=== PATIENT | female | born 1965 | race American Indian/Alaskan Native ===

== ENCOUNTER 2020-10-11 12:56 | Emergency (ER) | payer OTHER ==
[2020-10-11 13:56] LABS: BUN/Creatinine Ratio 27; Blood Urea Nitrogen 16 mg/dL (7-17); Calcium 9.4 mg/dL (8.4-10.2); Hemolysis Index 14
[2020-10-11 14:10] LABS: Basophils % (Auto) 0.6 % (0.0-1.8); Eosinophils # (Auto) 0.2 K/mm3 (0.0-0.4); Eosinophils % (Auto) 2.5 % (0.0-4.3); Hematocrit 41.1 % (30.3-42.9); Hemoglobin 13.5 gm/dl (10.1-14.3); Lymphocytes # (Auto) 2.6 K/mm3 (1.2-5.4); Lymphocytes % (Auto) 39.5 % (13.4-35.0); Mean Corpuscular HGB Conc 33 % (30-34); Mean Corpuscular Volume 95 fl (79-97); Monocytes # (Auto) 0.5 K/mm3 (0.0-0.8); Platelet Count 313 K/mm3 (140-440); Red Blood Count 4.33 M/mm3 (3.65-5.03); Red Cell Distribution Width 13.7 % (13.2-15.2)
[2020-10-11 14:15] VITALS: BP 144/70
--- NOTE | 2020-10-11 14:15 | Emergency Department Report ---
<ANTIONEMARLY C - Last Filed: 10/11/20 15:50> History of Present Illness - General Chief Complaint: Medical Clearance Stated Complaint: OVERDOSE Time Seen by Provider: 10/11/20 13:13 Source: patient Mode of arrival: Stretcher Limitations: No Limitations - History of Present Illness Initial Comments: 55-year-old female with a past medical history of diabetes (on insulin and pills), ADHD, CAD with stent placed in 2006 and hypertension currently on amlodipine 10 mg daily presents to the hospital with complaints of accidental o verdose of amlodipine. Patient took amlodipine 10 mg at approximately 9 or 10 PM last night. This morning she mistakenly took 2 more tablets i.e. 20 mg amlodipine at approximately 9:30 AM. Patient received her new amlodipine prescription from a different pharmacy and therefore the appearance of the pills was different. She thought she was taking 2 glipizide tablets and then afterwards realized that she indeed had taken additional Norvasc. Patient states she then took her glipizide, Metformin, and insulin as prescribed. Patient called the [place] advice hotline and then subsequently went to urgent care. Patient states she had a unremarkable EKG and was advised to go to the ER for evaluation. Patient states she did have several hours of right-sided chest tightness without aggravating or alleviating factors. She also denies associated symptoms including shortness breath, nausea, vomiting, lightheadedness, syncope, or diaphoresis. Patient is pain-free at this time and states it feels different than her previous heart attack. Patient last had a unremarkable exercise stress test 5 years ago and a negative cardiac cath in 2009. She states she walks at least 10,000 steps a day with last exercise day yesterday. Patient also takes a baby aspirin daily with last dose yesterday. She does not currently take Plavix. - Related Data Allergies Allergy/AdvReac Type Severity Reaction Status Date / Time doxycycline AdvReac Vomiting Verified 10/11/20 14:17 tetracycline AdvReac Vomiting Verified 10/11/20 14:17 ED Review of Systems Comment: All other systems reviewed and negative ED Past Medical Hx - Past Medical History Previous Medical History?: Yes Hx Hypertension: Yes Hx Heart Attack/AMI: Yes (2006) Hx Diabetes: Yes - Surgical History Hx Coronary Stent: Yes (2006) - Social History Smoking Status: Unknown if ever smoked ED Physical Exam - General Limitations: No Limitations - Other Other exam information: General: No acute distress Head: Atraumatic Eyes: normal appearance ENT: Moist mucous membranes Neck: Normal appearance, no midline tenderness Chest: Clear to auscultation bilaterally, chest wall nontender CV: Regular rate and rhythm Abdomen: Soft, normal bowel sounds, nontender, nondistended, no rebound or guarding Back: Normal inspection Extremity: Normal inspection, full range of motion, no calf tenderness or leg edema Neuro: Alert O x 3, no facial asymmetry, speech clear, no gross motor sensory deficit Psych: Appropriate behavior Skin: No rash ED Course - Reevaluation(s) Reevaluation #1: 10/11/20 14:[address] patient on telemetry monitor 10/11/20 15:48 BP normal in ed - Consultations Consultation #1: 10/11/20 14:37 Case discussed Deandre with poison control at this time. They had received call previously from [facility]. They recommend supportive care and 18 hours of observation. They state that Norvasc can have a delayed onset and prolonged half-life. Symptoms of toxicity usually become evident 9 hours post ingestion. If patient becomes hypotensive then IV fluids and call back to poison control for further instructions is recommended. Case was then discussed with Dr. Mcmahon hospitalist. History and name provided however, patient is a [place] patient and therefore I was called for [place] clearance prior to admission 10/11/20 15:22 case d/w Brendon MATA, states her notes state it was recommended for pt receive activated charcoal with sorbitol. I will call poison to confirm since I was not informed that was the recommendation and why pt was sent to the ED. Case rediscussed with Deandre with poison control who does not commend charcoal at this time given that ingestion with 6 hours ago. She confirmed this recommendation with her corporate strategy analyst 10/11/20 15:27 Awaiting callback from Brendon MATA to verify acceptance for transfer ED Medical Decision Making - Lab Data Result diagrams: 10/11/20 13:25 10/11/20 13:25 Lab Results 10/11/20 10/11/20 10/11/20 Range/Units 13:25 13:25 13:25 WBC 6.5 (4.5-11.0) K/mm3 RBC 4.33 (3.65-5.03) M/mm3 Hgb 13.5 (10.1-14.3) gm/dl Hct 41.1 (30.3-42.9) % MCV 95 (79-97) fl MCH 31 (28-32) pg MCHC 33 (30-34) % RDW 13.7 (13.2-15.2) % Plt Count 313 (140-440) K/mm3 Lymph % (Auto) 39.5 H (13.4-35.0) % Morton % (Auto) 7.0 (0.0-7.3) % Eos % (Auto) 2.5 (0.0-4.3) % Baso % (Auto) 0.6 (0.0-1.8) % Lymph # (Auto) 2.6 (1.2-5.4) K/mm3 Morton # (Auto) 0.5 (0.0-0.8) K/mm3 Eos # (Auto) 0.2 (0.0-0.4) K/mm3 Baso # (Auto) 0.0 (0.0-0.1) K/mm3 Seg Neutrophils % 50.4 (40.0-70.0) % Seg Neutrophils # 3.3 (1.8-7.7) K/mm3 Sodium 138 (137-145) mmol/L Potassium 4.1 (3.6-5.0) mmol/L Chloride 105.3 (98-107) mmol/L Carbon Dioxide 22 (22-30) mmol/L Anion Gap 15 mmol/L BUN 16 (7-17) mg/dL Creatinine 0.6 (0.6-1.2) mg/dL Estimated GFR > 60 ml/min BUN/Creatinine Ratio 27 % Glucose 223 H (65-100) mg/dL POC Glucose (70-105) mg/dL Calcium 9.4 (8.4-10.2) mg/dL Troponin T (0.00-0.029) ng/mL Salicylates < 0.3 L (2.8-20.0) mg/dL Acetaminophen (10.0-30.0) ug/mL Plasma/Serum Alcohol (0-0.07) % 10/11/20 10/11/20 10/11/20 Range/Units 13:25 13:25 13:36 WBC (4.5-11.0) K/mm3 RBC (3.65-5.03) M/mm3 Hgb (10.1-14.3) gm/dl Hct (30.3-42.9) % MCV (79-97) fl MCH (28-32) pg MCHC (30-34) % RDW (13.2-15.2) % Plt Count (140-440) K/mm3 Lymph % (Auto) (13.4-35.0) % Morton % (Auto) (0.0-7.3) % Eos % (Auto) (0.0-4.3) % Baso % (Auto) (0.0-1.8) % Lymph # (Auto) (1.2-5.4) K/mm3 Morton # (Auto) (0.0-0.8) K/mm3 Eos # (Auto) (0.0-0.4) K/mm3 Baso # (Auto) (0.0-0.1) K/mm3 Seg Neutrophils % (40.0-70.0) % Seg Neutrophils # (1.8-7.7) K/mm3 Sodium (137-145) mmol/L Potassium (3.6-5.0) mmol/L Chloride (98-107) mmol/L Carbon Dioxide (22-30) mmol/L Anion Gap mmol/L BUN (7-17) mg/dL Creatinine (0.6-1.2) mg/dL Estimated GFR ml/min BUN/Creatinine Ratio % Glucose (65-100) mg/dL POC Glucose 185 H (70-105) mg/dL Calcium (8.4-10.2) mg/dL Troponin T (0.00-0.029) ng/mL Salicylates (2.8-20.0) mg/dL Acetaminophen 5.0 L (10.0-30.0) ug/mL Plasma/Serum Alcohol < 0.01 (0-0.07) % 12/20/20 Range/Units Unknown WBC (4.5-11.0) K/mm3 RBC (3.65-5.03) M/mm3 Hgb (10.1-14.3) gm/dl Hct (30.3-42.9) % MCV (79-97) fl MCH (28-32) pg MCHC (30-34) % RDW (13.2-15.2) % Plt Count (140-440) K/mm3 Lymph % (Auto) (13.4-35.0) % Morton % (Auto) (0.0-7.3) % Eos % (Auto) (0.0-4.3) % Baso % (Auto) (0.0-1.8) % Lymph # (Auto) (1.2-5.4) K/mm3 Morton # (Auto) (0.0-0.8) K/mm3 Eos # (Auto) (0.0-0.4) K/mm3 Baso # (Auto) (0.0-0.1) K/mm3 Seg Neutrophils % (40.0-70.0) % Seg Neutrophils # (1.8-7.7) K/mm3 Sodium (137-145) mmol/L Potassium (3.6-5.0) mmol/L Chloride (98-107) mmol/L Carbon Dioxide (22-30) mmol/L Anion Gap mmol/L BUN (7-17) mg/dL Creatinine (0.6-1.2) mg/dL Estimated GFR ml/min BUN/Creatinine Ratio % Glucose (65-100) mg/dL POC Glucose (70-105) mg/dL Calcium (8.4-10.2) mg/dL Troponin T < 0.010 (0.00-0.029) ng/mL Salicylates (2.8-20.0) mg/dL Acetaminophen (10.0-30.0) ug/mL Plasma/Serum Alcohol (0-0.07) % - EKG Data -: EKG Interpreted by Sc EKG shows normal: sinus rhythm, intervals (pr 64), ST-T waves (no stemi) Rate: normal (64) - Radiology Data Radiology results: report reviewed (cxr: naf) - Medical Decision Making 55-year-old female presents to the hospital with accidental amlodipine overdose. She did have chest pain prior to arrival however, I have a low suspicion of cardiac since it is atypical for her previous AL symptoms and atypical for ACS. Patient also exercises via walking daily without ACS symptoms. patient was provided an aspirin given history of CAD with stent and missed aspirin dose this morning. EKG does not show signs of ischemia and initial troponin is negative with repeat pending. Case discussed with poison control and at least minimal 18 hours of observation recommended given delayed onset of action and prolonged half-life. IV fluids recommended for hypotension and call back to poison control with further instructions. Patient will be admitted to the hospitalist service under telemetry for further monitoring and evaluation. Pt to be admited. Case has been discussed with both the hospitalist Dr Rodriges and [place] physician. Place of admission depending if [place] has a bed available for the patient. It is too late for patient to receive activated charcoal at this time as per Poison Control Center. Observation and supportive care recommended Pt signed out to Dr Cantu to inform admitting provider once dispo clear. Critical Care Time: No ED Disposition Clinical Impression: Accidental overdose, Chest pain, HTN (hypertension), Diabetes Disposition: [id number]/TX-[id number] ANOTHER TYPE HLTHCARE Condition: Stable Instructions: Chest Pain (ED), Diabetes Mellitus Type 2 in Adults (ED), Hypertension (ED) Referrals: PRIMARY CARE, [Primary Care Provider] - 3-5 Days <JENNY CANTU - Last Filed: 10/11/20 16:03> ED Review of Systems ROS: Stated complaint: OVERDOSE Other details as noted in HPI ED Course Vital Signs 10/11/20 10/11/20 13:08 14:14 Temperature 98.0 F Pulse Rate 66 Respiratory 16 16 Rate Blood Pressure 144/70 O2 Sat by Pulse 100 Oximetry - Consultations Consultation #1: 10/11/20 16:00 [facility] called back, will arrange for transfer to [facility]. Accepting physician, Dr Saucedo. ED Medical Decision Making - Lab Data Result diagrams: 10/11/20 13:25 10/11/20 13:25 Critical care attestation.: If time is entered above; I have spent that time in minutes in the direct care of this critically ill patient, excluding procedure time. ED Disposition Is pt being admited?: No
[2020-10-11] MEDS ORDERED: ASPIRIN 325 MG TAB PO ONE (14:25)
--- NOTE | 2020-10-11 15:08 | XRay Report ---
CHEST 2 VIEWS INDICATION / CLINICAL INFORMATION: chest pain. COMPARISON: None available. FINDINGS: SUPPORT DEVICES: None. HEART / MEDIASTINUM: No significant abnormality. LUNGS / PLEURA: No significant pulmonary or pleural abnormality. No pneumothorax. ADDITIONAL FINDINGS: No significant additional findings. IMPRESSION: 1. No acute findings. Signer Name: Hansel Parham MD Signed: 10/11/2020 3:03 PM Workstation Name: [id number]
== END 2020-10-11 17:18 | disposition other institution (70) ==
LOC: ED 12:56
DX: T46.1X1A Poisoning by calcium-channel blockers, accidental (unintentional), initial encounter (principal); E11.9 Type 2 diabetes mellitus without complications; I10 Essential (primary) hypertension; R07.9 Chest pain, unspecified; I25.10 Atherosclerotic heart disease of native coronary artery without angina pectoris; I25.2 Old myocardial infarction; Z88.8 Allergy status to other drugs, medicaments and biological substances; Y92.89 Other specified places as the place of occurrence of the external cause
CPT/HCPCS: 36415; 71046; 80048; 80320; 82962; 84484; 85025; 93005; G0480